=== PATIENT | female | born 1940 | race African-American/Black ===

== ENCOUNTER 2018-03-07 00:27 | Observation (INO) | payer MEDICARE, MEDICAID ==
[2018-03-07 01:34] LABS: Hemoglobin 14.2 g/dL (12.0-16.0); Mean Corpuscular HGB CONC 32.8 g/dL (32.0-36.0); Mean Corpuscular Hemoglobin 30.5 pg (27.0-31.0); Mean Corpuscular Volume 93.1 fL (78.0-98.0); Mean Platelet Volume 8.1 fL (7.4-10.4); Platelet Count 302 thou/uL (130-400); RBC Distribution Width 12.1 % (11.5-14.5); Red Blood Cell (RBC) Count 4.66 mill/uL (4.20-5.40); White Blood Cell (WBC) Count 5.9 thou/uL (4.8-10.8)
[2018-03-07 01:36] LABS: INR-International Normal Ratio 1.1; PTT 32.3 SEC (22.9-36.1); Prothrombin Time 14.1 SEC (12.0-14.7)
[2018-03-07 01:51] LABS: CKMB 0.7 ng/mL (0-6.6); Troponin I Less than 0.010 ng/mL (< 0.028)
[2018-03-07 02:03] LABS: Eosinophils 1 % (0-10); MDiff Complete? YES; Monocytes 5 % (0-10)
[2018-03-07 02:12] LABS: Band 3 % (5-11); Lymphocytes 25 % (21-51); Neutrophil 66 % (42-75)
[2018-03-07 02:39] LABS: Albumin 3.6 g/dL (3.4-4.8)
[2018-03-07 02:41] LABS: Chloride 99 mmol/L (98-107); Magnesium 1.9 mg/dL (1.6-2.6); Potassium 4.2 mmol/L (3.5-5.1); Sodium 134 mmol/L (136-145)
[2018-03-07 02:42] LABS: Globulin 4.7 g/dL (2.4-3.5); Glucose 84 mg/dL (83-110); Protein, Total 8.3 g/dL (6.0-8.3)
[2018-03-07 02:43] LABS: Anion Gap 15 mmol/L (10-20); Carbon Dioxide 24 mmol/L (23-31)
[2018-03-07 02:44] LABS: Bilirubin, Total 0.9 mg/dL (0.2-1.2)
[2018-03-07 02:45] LABS: Alkaline Phosphatase 86 U/L (40-150); Calc. Creatinine Clearance 0 mL/min (70-130); Estimated GFR-MDRD 87
[2018-03-07 02:46] LABS: BUN (Urea Nitrogen) 19 mg/dL (9.8-20.1)
[2018-03-07 02:47] LABS: AST (SGOT) 19 U/L (5-34)
[2018-03-07 02:48] LABS: ALT (SGPT) 18 U/L (8-55); CK (CPK) 36 U/L (29-168)
[2018-03-07 03:35] LABS: Bilirubin Negative (Negative); Blood, Urine Small (Negative); Clarity CLOUDY (Clear); Glucose, Urine (Dipstick) Negative (Negative); Leukocyte Moderate (Negative); Nitrite Negative (Negative); Protein, Urine (Dipstick) Negative (Neg-Trace); Specific Gravity, Urine 1.021 (1.002-1.036); Urobilinogen 0.2 mg/dL (0.2-1.0)
[2018-03-07 03:38] LABS: Bacteria/HPF None Seen HPF (None Seen); RBC/HPF None Seen HPF (0-3); Squamous Epithelial 21-50 HPF (0-3); Yeast-AUWi Flag 3.7 (0-25.0)
[2018-03-07 03:41] LABS: Pathc Cast-AUWi Flag 12.35 (0-2.49)
[2018-03-07 03:52] LABS: Hyaline Casts/LPF NONE SEEN LPF (0-3 Hyaline); Other Casts/LPF None Seen LPF (0-3 Hyaline); Renal Epithelial None Seen HPF (0-3); Transitional Epithelial NONE SEEN HPF (0-3)
[2018-03-07] MEDS ORDERED: cefTRIAXone\\ROCEPHIN 1 GM VIAL ONE (04:49)
[2018-03-07 05:38] LABS: Troponin I Less than 0.010 ng/mL (< 0.028)
[2018-03-07 07:38] VITALS: BMI 24.0
[2018-03-07 08:36] LABS: Troponin I Less than 0.010 ng/mL (< 0.028)
--- NOTE | 2018-03-07 09:51 | RAD ---
SINGLE VIEW CHEST: HISTORY: Unwitnessed fall. Seizure-like activity. COMPARISON: None. FINDINGS: A single view of the chest shows a normal sized cardiomediastinal silhouette. There is a pacemaker w ith its lead in the right ventricle. There is no evidence of consolidation, mass, or pleural effusio n. IMPRESSION: No evidence of acute cardiopulmonary disease. POS: [facility]
--- NOTE | 2018-03-07 10:00 | CT ---
PRELIMINARY REPORT/[facility]/EMERGENTY AFTER-HOURS PROCEDURE CT Cervical Spine Without Intravenous Contrast CLINICAL HISTORY: 77 years old, female; Injury or trauma; Fall; Initial encounter; Abrasion; Patient HX: F77 presents t o ed via ems S/P fall. According to nh, pt rolled out of bed. Pt was return to bed and began to exhib it seizure-like activity including eyes rolling back in head. HX aphasia at baseline. TECHNIQUE: Axial computed tomography images of the cervical spine without intravenous contrast. COMPARISON: No relevant prior studies available. FINDINGS: Scanning from the skull base to the top of T6. On axial CT images, no definite acute fracture is visible. Sagittal and coronal reconstructions show no fracture or subluxation. Mild to moderate degenerative disc changes and facet joint arthritis at multiple levels. No definite/significant disc herniation by CT, MRI could be more sensitive if clinically indicated. Numerous small thyroid nodules or cysts bilaterally. IMPRESSION: No definite acute fracture or subluxation by CT. Other findings discussed above. Thank you for allowing us to participate in the care of your patient. Dictated and Authenticated by: Varghese Rich MD 03/07/2018 3:21 AM Central Time ([place] & [place]) FINAL REPORT CERVICAL SPINE CT SCAN WITHOUT IV CONTRAST: Date: 03/07/18 Time: 0204 hours FINDINGS/IMPRESSION: No acute fracture or facet dislocation. Significant multilevel cervical spondylosis. Report in agreement with preliminary report given on-call by Davina. POS: [facility]
--- NOTE | 2018-03-07 10:02 | CT ---
PRELIMINARY REPORT/[facility]/EMERGENTY AFTER-HOURS PROCEDURE CT Head Without Intravenous Contrast CLINICAL HISTORY: 77 years old, female; Injury or trauma; Fall; Initial encounter; Blunt trauma (contusions or hematoma s); Consciousness not specified; Patient HX: F77 presents to ed via ems S/P fall. According to nh, pt rolled out of bed. Pt was return to bed and began to exhibit seizure-like activity including eyes rolling back in head. HX aphasia at baseline. TECHNIQUE: Axial computed tomography images of the head/brain without intravenous contrast. COMPARISON: No relevant prior studies available. FINDINGS: No definite acute skull fracture. Included paranasal sinuses are essentially clear. No acute intracranial hemorrhage or mass effect. There is relatively symmetrical decreased attenuation in the periventricular white matter, likely fro m microvascular disease. Large old infarct in the left middle cerebral artery distribution. No definite acute infarct by CT. MRI could be more sensitive/specific for detection, as clinically di rected. Ventricle size is within normal limits or age, and volume loss. IMPRESSION: No acute intracranial hemorrhage or mass effect. Changes of microvascular disease, and large old left MCA infarct. No definite acute infarct by CT, see above. Thank you for allowing us to participate in the care of your patient. Dictated and Authenticated by: Varghese Rich MD 03/07/2018 3:16 AM Central Time ([place] & [place]) FINAL REPORT EMERGENCY AFTER HOURS BRAIN CT WITHOUT IV CONTRAST: Date: 03/07/18 Time: 0201 hours FINDINGS/IMPRESSION: Large area of encephalomalacic change in the left middle cerebral artery distribution, evidence for a n old left MCA infarct. Atrophy and chronic white matter ischemic change. No mass or bleed. Evidence for enlargement of the sella turcica and probable at least partial empty sella. Report in agreement with preliminary report given on-call by Davina. POS: [facility]
[2018-03-07] MEDS ORDERED: Acetaminophen 650 MG Suppository PR PRN (14:07)
[2018-03-07] MEDS ORDERED: Ondansetron ODT 4 MG TAB PER TUBE PRN (14:07)
[2018-03-07] MEDS ORDERED: Acetaminophen 325 MG TAB PO PRN (14:07)
[2018-03-07] MEDS ORDERED: Acetaminophen 325 MG TAB PER TUBE PRN (14:07)
[2018-03-07] MEDS ORDERED: Ondansetron HCl/PF 4 MG/2 ML Vial IVP PRN (14:07)
[2018-03-07] MEDS: Carvedilol 6.25 MG TAB PER TUBE SCH (20:57)
[2018-03-07] MEDS: Famotidine 20 MG TAB PER TUBE SCH (20:57)
[2018-03-07] MEDS: Apixaban 5 MG TAB PER TUBE SCH (20:57)
[2018-03-07] MEDS: Loperamide HCl 2 MG CAP PER TUBE SCH (20:57)
[2018-03-07] MEDS ORDERED: Menthol/Zinc Oxide [Calmoseptine Ointment] TOP SCH (21:00)
[2018-03-07] MEDS ORDERED: Atorvastatin Calcium 20 MG TAB PER TUBE SCH (21:00)
[2018-03-07] MEDS: Cholestyramine/Aspartame 4 gm Packet PER TUBE SCH (21:58)
--- NOTE | 2018-03-08 04:03 | CON ---
DATE OF CONSULTATION: 03/07/2018 REFERRING PHYSICIAN: Dr. Shawn Greene. REASON FOR CONSULTATION: Altered mental status. HISTORY OF PRESENT ILLNESS: Ms. Mabry is a pleasant 77-year-old - [place] female who has been consulted for evaluation of altered mental status. History is obtained from daughter who was present at bedside. Daughter reports that the patient has a history of stroke affecting her right side of the body and aphasia 1 year ago. She has been in [facility] facility, they received a phone call today, stating that she had fell off the bed. When they return her back to the bed, she was noted to have seizure-type activity where her eyes were rolled back to the back of the head and thus she was brought to the [facility] for further evaluation. Daughter reports that she has no prior history of seizure disorder. She is currently not on any seizure medication. Daughter feels that she is back to her baseline now. PAST MEDICAL HISTORY: Significant for hypertension, coronary artery disease, congestive heart failure, history of stroke. PAST SURGICAL HISTORY: Significant for pacemaker placement. SOCIAL HISTORY: She lives in a [facility]. She does not smoke cigarettes, drink alcohol, or use illicit drugs. FAMILY HISTORY: Noncontributory. CURRENT MEDICATIONS: Please review MAR. ALLERGIES: No known drug allergies. REVIEW OF SYSTEMS: Unable to perform. PHYSICAL EXAMINATION: VITAL SIGNS: Blood pressure of 116/62, pulse is 95, temperature of 98.4, respirations of 17, O2 sats of 94% on room air. GENERAL: A well-developed, well-nourished -[place] female, in no apparent distress. RESPIRATORY: Clear to auscultation bilaterally. CARDIOVASCULAR: Regular rate and rhythm. NEUROLOGIC: Mental status: The patient is awake, alert, and oriented to person. Speech and language: She is essentially mute and has global aphasia. Cranial nerves: Pupils are 3 mm and reactive. Visual rudd are full to threat. External muscles are intact. No nystagmus is noted. Face is symmetric. Tongue and uvula appears midline. Motor exam showed spastic right upper and right lower extremities. She has 0/5 strength in the right upper and right lower extremities. Strength in the left upper and left lower extremities is 5/5, to touch on the right side. Deep tendon reflexes: Brisk reflexes on the right upper and right lower extremities. Babinski: Plantar responses extensor on right side. Gait and Romberg coordination could not be tested. LABORATORY DATA: Reviewed, which included CBC, CMP, coag panel, urinalysis, which is significant for sodium of 134. Urinalysis showing 4-6 wbc's with moderate leukocyte esterase and 21-50 squamous epithelial cells, otherwise unremarkable. IMAGING STUDIES: CT head without contrast showed no acute intracranial abnormality. IMPRESSION: 1. Altered mental status, likely a complex partial seizure. 2. Prior history of left middle cerebral artery stroke. 3. Hypertension. Ms. Mabry is a pleasant 77-year-old -[place] female with a prior history of left MCA stroke, presented with the altered mental status and seizure -type activity. I have reviewed her CT head, which did show large left MCA distribution prior ischemic infarct. This involves cortical area as well and thus likely causing high risk for seizure. Due to this reason, I would recommend starting her on antiepileptic medication. I will start her on Dilantin 300 mg at bedtime. If she remains stable overnight without any seizure -type activity, she is okay to be discharged to [facility]. I will recommend obtaining EEG prior to her discharge. She will follow up with a neurologist as an outpatient. Thank you for consultation. MARK
[2018-03-08 05:07] LABS: #Eosinphils 0.3 thou/uL (0.0-0.7); #Lymphocytes 1.5 thou/uL (1.20-3.40); #Monocytes 0.6 thou/uL (0.11-0.59); #Neutrophils 1.9 thou/uL (1.40-6.50); %Basophils 1.1 % (0.0-1.0); %Eosinophils 6.8 % (0.0-10.0); %Monocytes 12.8 % (0.0-10.0); %Neutrophils 43.4 % (42.0-75.0); Hemoglobin 12.4 g/dL (12.0-16.0); Mean Corpuscular HGB CONC 32.2 g/dL (32.0-36.0); Mean Corpuscular Hemoglobin 30.1 pg (27.0-31.0); Mean Corpuscular Volume 93.8 fL (78.0-98.0); Mean Platelet Volume 7.4 fL (7.4-10.4); Platelet Count 259 thou/uL (130-400); RBC Distribution Width 11.7 % (11.5-14.5); Red Blood Cell (RBC) Count 4.12 mill/uL (4.20-5.40); White Blood Cell (WBC) Count 4.3 thou/uL (4.8-10.8)
[2018-03-08 05:20] LABS: Anion Gap 12 mmol/L (10-20); BUN (Urea Nitrogen) 20 mg/dL (9.8-20.1); Calc. Creatinine Clearance 71 mL/min (70-130); Carbon Dioxide 27 mmol/L (23-31); Chloride 101 mmol/L (98-107); Estimated GFR-MDRD 88; Glucose 125 mg/dL (83-110); Potassium 3.7 mmol/L (3.5-5.1); Sodium 136 mmol/L (136-145)
[2018-03-08] MEDS ORDERED: Spironolactone 25 MG TAB PER TUBE SCH (09:00)
[2018-03-08] MEDS ORDERED: Saccharomyces boulardii 250 MG CAP PER TUBE SCH (09:00)
[2018-03-08] MEDS ORDERED: FLUoxetine HCl 20 MG CAP PER TUBE SCH (09:00)
[2018-03-08] MEDS: Carvedilol 6.25 MG TAB PER TUBE SCH (09:32)
[2018-03-08] MEDS: Apixaban 5 MG TAB PER TUBE SCH (09:32)
[2018-03-08] MEDS: Loperamide HCl 2 MG CAP PER TUBE SCH (09:33)
[2018-03-08] MEDS: Cholestyramine/Aspartame 4 gm Packet PER TUBE SCH (09:33)
[2018-03-08] MEDS: Famotidine 20 MG TAB PER TUBE SCH (09:33)
--- NOTE | 2018-03-08 13:00 | HP ---
DATE OF ADMISSION: 03/07/2018 DATE OF DISCHARGE: 03/08/2018 PRIMARY CARE PHYSICIAN: Unknown. The patient is a resident of [facility]. DISCHARGE DIAGNOSES: 1. Partial complex seizure. 2. 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 3. Hypertension. 4. Status post pacemaker placement in the past. CHIEF COMPLAINT: Found on the floor. HISTORY OF PRESENT ILLNESS: Ms. Mabry is a 77-year-old female who is nonverbal, but does answer y es/no questions, who is currently accompanied by her family, who presented to the emergency departmen t late on 03/07/2018. She was found on the floor and when she was being evaluated on returning to be d, she was having seizure-like activity which they described as eyes rolling back in her head and loo ranjit over towards the left. She had no tonic clonic activity and does not really recall the episode. EMS was activated. She was brought to the emergency department for evaluation. Workup here showed a CBC that was fairly normal white blood cell count and 3% bands. She had a CMP t hat was within normal limits and a prolactin that was upper limit of normal at 24.42. Urinalysis manan wed 21-50 squamous cells and only 4-6 white blood cells. We were subsequently called for admit. The patient was accepted by the supervisor carbon paper coating and held overnight, has been admitted the following sandra peoples. She is returning back to her baseline mental status. She is answering questions appropriately. She has no complaints. Denies any fevers or chills. No nausea or vomiting. Hurts in her back. PAST MEDICAL HISTORY: 1. Cerebrovascular disease status post stroke about 13 months ago. She had an ischemic left middle cerebral artery distribution stroke with residual right-sided hemiplegia. 2. Oropharyngeal dysphagia. 3. Right-sided weakness. 4. Coronary artery disease. 5. Chronic systolic congestive heart failure. 6. Status post pacemaker placement. 7. Gastroesophageal reflux disease. 8. Recurrent urinary tract infections. PAST SURGICAL HISTORY: Includes a G-tube placement. SOCIAL HISTORY: Negative for alcohol, tobacco or drugs. She currently lives at [facility] as a long-term care patient. She has medical power of regulatory attorney and durable power attorn ey with her sister being the primary decision maker and her daughter being secondary. I discussed e case with the sister and she does wish the patient to be FULL CODE. HOME MEDICATIONS: 1. Eliquis 2.5 mg p.o. b.i.d. 2. Fluoxetine 100 mg p.o. daily. 3. Spironolactone 12.5 mg daily. 4. Atorvastatin 20 mg p.o. at bedtime. 5. Loperamide as needed. ALLERGIES: ADHESIVE. No known drug allergies. FAMILY HISTORY: Negative for clotting or bleeding disorder. No immune dysfunction. SOCIAL HISTORY: Negative. REVIEW OF SYSTEMS: Attempted. Thus, I could ascertain through yes/no questions. All systems review ed and negative except as stated above. PHYSICAL EXAMINATION: VITAL SIGNS: Temperature on arrival 98.4, pulse 91, blood pressure 116/66, respiratory 18, O2 sat 94 % on room air, remained stable. GENERAL: She is awake and alert. She is pleasant and cooperative and follows commands. She appears to be in no acute distress. HEENT: Normocephalic, atraumatic. Pupils equal, reactive bilaterally. She has a slight right-sided facial droop. She is aphasic. NECK: Supple. There is no lymphadenopathy, JVD, or thyromegaly with normal carotid upstroke. There is no appreciable bruit. LUNGS: Clear. No wheezes, no rales, no rhonchi with good air movement. She has symmetrical chest e xcursion. No prolonged expiratory phase. ABDOMEN: Soft, nontender, nondistended. She has a G-tube in place and has a gauze appropriately adam kulwinder. There is no erythema and site is clean. She has good bowel sounds in all 4 quadrants. There i s no rebound, rigidity or guarding. EXTREMITIES: No cyanosis, no clubbing. She has got edema, more on the right than the left. SKIN: Warm, moist, and well perfused. She has no rash or lesion, no breakdown. The pacemaker site is clean, dry, and intact. MUSCULOSKELETAL: Normal to inspection. Large joints appear normal. There is no evidence of inflamm ation, palpable effusion. NEUROLOGIC: She has right-sided dense hemiplegia. She has left-sided 5/5 strength, but does take a moment to get moving. LABORATORY DATA: CBC showed a white count of 5.9, hemoglobin 14.2, hematocrit of 43.4, platelet coun t is 302,000. She has a normal differential, 66% granulocytes, 3% bands. INR is 1.1. CMP is comple tely within normal limits. Sodium 134, potassium 4.2, creatinine 0.78. She has a troponin was less than 0.010 and a repeat was less than 0.010. Prolactin was 24.42. Lactic acid was normal at 2.0. U rinalysis showed 21-50 squamous cells, 4-6 white blood cells, moderate leukocyte esterase with small blood, negative nitrite, and no bacteria. ASSESSMENT AND PLAN: 1. Fall from same level. 2. Possible seizures. If so this may have been a partial complex seizure due to her gliosis from a stroke. Neurology has been consulted. She was placed on seizure precautions. She is not any antiep ileptics at this time. 3. Hypertension. 4. Hyperlipidemia. 5. History of coronary artery disease. 6. Status post pacemaker placement. 7. Right-sided weakness. 8. Oropharyngeal dysphagia, on tube feeds. I will continue current management and await neurologic recommendations.
--- NOTE | 2018-03-08 13:25 | DIS ---
DATE OF ADMISSION: 03/07/2018 DATE OF DISCHARGE: 03/08/2018 PRIMARY CARE PHYSICIAN: [facility] DISCHARGE DIAGNOSES: 1. Partial complex seizures. 2. History of cerebrovascular accident with residual right-sided weakness. 3. Oropharyngeal dysphagia. 4. Hypertension. 5. Hyperlipidemia. 6. Coronary artery disease. 7. Past pacemaker placement. CONSULTATIONS: Lidia Trevino with Neurology. PROCEDURES: None. HISTORY AND PHYSICAL: Ms. Mabry is a 77-year-old female who was found down on the floor at the half-way, though she is nonambulatory, never get out of bed. On return to the bed, she was felt to have some seizure-like activity with eyes rolling back in head and deviated to the left, so EMS was activated. She was brought to the emergency department for evaluation. Here, she was found to be normal with normal labs. We were subsequently called for further workup. HOSPITAL COURSE: The patient was sent by the miner operator and transferred to floor. I saw her later that morning. At that time, she returned back to her baseline mental status. Neurology was consulted and saw her late that evening. They recommended starting her on Dilantin 300 mg p.o. at bedtime which was begun. She remained stable overnight 03/07/2018 to 03/08/2018 and today was stable for discharge with outpatient followup. PHYSICAL EXAMINATION: The patient was seen and examined on the day of discharge. Discharge plan and disposition were discussed with the patient face to face bedside with her family. DISCHARGE MEDICATIONS: 1. New medication, Dilantin 300 mg p.o. at bedtime. Her medicines to continue: 1. Eliquis 5 mg p.o. b.i.d. 2. Atorvastatin 20 mg p.o. at bedtime. 3. Carvedilol 6.25 mg p.o. b.i.d. 4. Cholecalciferol 1000 units daily. 5. Cholestyramine 4 grams 2 packets p.o. b.i.d. 6. Fluoxetine 20 mg daily. 7. Lactobacillus daily. 8. Loperamide p.r.n. 9. Spironolactone 25 mg daily. 10. Tylenol p.r.n. 11. Calmoseptine ointment topically as needed. FOLLOWUP APPOINTMENTS: 1. Primary care physician within a week. 2. Dr. Trevino in 2-3 weeks. DISCHARGE CONDITION: Stable. DISPOSITION: The patient being transferred back to [facility] via a nonemergent EMS transport. She is unable to sit up in a wheelchair van. DISCHARGE ACTIVITY: Bed rest. DISCHARGE DIET: N.p.o. The patient does get tube feeds to resume. MTDD
[2018-03-08 15:46] VITALS: BP 119/57; TEMP 98.1
== END 2018-03-08 17:22 ==
LOC: ERS 00:27 → 2SE 04:35
PROVIDERS: ADMIT Internal Medicine; ATTEND Internal Medicine
DX: G40.209 Localization-related (focal) (partial) symptomatic epilepsy and epileptic syndromes with complex partial seizures, not intractable, without status epilepticus (principal); I10 Essential (primary) hypertension; E78.5 Hyperlipidemia, unspecified; I25.10 Atherosclerotic heart disease of native coronary artery without angina pectoris; Z95.0 Presence of cardiac pacemaker; Z86.73 Personal history of transient ischemic attack (TIA), and cerebral infarction without residual deficits; Z79.01 Long term (current) use of anticoagulants; Z79.899 Other long term (current) drug therapy; Z91.048 Other nonmedicinal substance allergy status
CPT/HCPCS: 51701; 70450; 71045; 72125; 80048; 82550; 82553; 83605; 83735; 83880; 84146; 84484 ×2; 85025; 85610; 85730; 87040; 87086; 93005; 95816; 95819; 96365; 99285; G0378 ×2; 36415; 80053; 81003; 81015; 84443; A4353; G8996-GN-CM; G8997-GN-CK; J0696